=== PATIENT | male | born 2000 | race Two or more races ===

== ENCOUNTER 2020-10-19 13:42 | Emergency (ER) | payer OTHER ==
[~2020-10-19] VITALS: Ht 160 cm; Wt 83.9 kg
[2020-10-19] MEDS ORDERED: KETO10TA2 PO (16:15)
== END 2020-10-19 16:23 | disposition home or self-care (01) ==
LOC: EMR PED 13:42
DX: M75.81 Other shoulder lesions, right shoulder (principal); G89.11 Acute pain due to trauma

== ENCOUNTER 2021-01-06 08:08 | Day surgery (SDC) | payer OTHER ==
[~2021-01-06 08:08] MED LIST: KETO10TA2 PO
== END 2021-01-06 18:15 | disposition home or self-care (01) ==
LOC: CIR.AMB 08:08
PROVIDERS: ATTEND Orthopaedic Surgery Sports Medicine
DX: S43.431A Superior glenoid labrum lesion of right shoulder, initial encounter (principal); Z20.822 Contact with and (suspected) exposure to COVID-19

== ENCOUNTER 2025-02-05 22:52 | Emergency (ER) | payer OTHER ==
[~2025-02-05] VITALS: Ht 170.2 cm; Wt 81.6 kg
[2025-02-05] MEDS ORDERED: KETOROLAC TROMETHAMINE 60 MG VIAL IM ONE (23:30)
[2025-02-06] MEDS ORDERED: KETOROLAC TROMETHAMINE 60 MG VIAL IM ONE (00:13)
[2025-02-06] MEDS ORDERED: IBUPROFEN800 MG PO (00:22)
== END 2025-02-06 00:28 | disposition home or self-care (01) ==
LOC: ER 22:52
DX: S50.01XA Contusion of right elbow, initial encounter (principal); S60.221A Contusion of right hand, initial encounter; S50.11XA Contusion of right forearm, initial encounter; W18.39XA Other fall on same level, initial encounter; Y93.67 Activity, basketball; Y92.89 Other specified places as the place of occurrence of the external cause; Y99.9 Unspecified external cause status; Z87.09 Personal history of other diseases of the respiratory system; E16.2 Hypoglycemia, unspecified

== ENCOUNTER 2025-04-10 17:47 | Emergency (ER) | payer OTHER ==
[~2025-04-10] VITALS: Ht 157.5 cm; Wt 83.0 kg
[~2025-04-10 17:47] MED LIST changes: +IBUPROFEN800 MG PO
[2025-04-10 20:01] LABS: BASO % 0.7 % (0.1-1.2); EOS # 0.19 (0.04-0.54); EOS % 2.3 % (0.7-7.0); LYMPH # 2.97 (1.18-3.74); LYMPH % 35.9 % (19.3-53.1); MEAN PLATELET VOLUME 8.90 fl (9.4-12.4); MONO # 0.73 (0.24-0.82); MONO % 8.8 % (4.7-12.5); NEUT # 4.30 (1.56-6.13); NEUT % 51.9 % (34.0-71.1); RED CELL DISTRIBUTION WIDTH 11.4 % (11.6-14.4)
[2025-04-10 20:29] LABS: COVID-19 AG NEGATIVE (NEGATIVE)
[2025-04-10] MEDS ORDERED: SINGULAIR10 MG PO (21:36)
[2025-04-10] MEDS ORDERED: ZYRTEC10 M3 PO (21:36)
[2025-04-10] MEDS ORDERED: BENZONATATE 100 MG CAPSULE PO ONE (21:45)
[2025-04-10] MEDS ORDERED: BENZONATATE200 M1 PO (21:58)
== END 2025-04-10 22:11 | disposition home or self-care (01) ==
LOC: ER 17:47
PROVIDERS: Preventive Medicine Public Health & General Preventive Medicine
DX: R05.8 Other specified cough (principal); Z20.822 Contact with and (suspected) exposure to COVID-19; Z87.09 Personal history of other diseases of the respiratory system; E16.2 Hypoglycemia, unspecified